=== PATIENT | female | born 1950 | race Caucasian/White ===

== ENCOUNTER → 2020-02-16 07:42 | Outpatient (CLI) | payer MEDICARE, OTHER, SELFPAY ==
--- NOTE | ~2020-02-16 | XR_ITS ---
XR ankle LT min 3V DATE: 02/16/2020 08:03 INDICATION: Left ankle injury, sprain, pain, swelling TECHNIQUE: 4 views COMPARISON: None FINDINGS: There is mild to moderate lateral soft tissue swelling. No recent fracture or dislocation o f the ankle or disruption of the ankle mortise is detected. There are small calcifications adjacent t o the lateral malleolus. These are likely chronic. Slight plantar calcaneal enthesopathy. IMPRESSION: Mild to moderate lateral soft tissue swelling; no apparent recent fracture Reviewed, dictated and finalized at location B. ESSIONAL SERVICES MANAGER IMPRESSION: Mild to moderate lateral soft tissue swelling; no apparent recent f racture
== END ==
PROVIDERS: PCP Family Medicine; Visit Provider Family Medicine
DX: S93.492A Sprain of other ligament of left ankle, initial encounter (principal); M77.52 Other enthesopathy of left foot and ankle
CPT/HCPCS: 73610

== ENCOUNTER → 2020-02-18 14:54 | Outpatient (CLI) | payer MEDICARE, OTHER, SELFPAY ==
--- NOTE | ~2020-02-18 | MR_ITS ---
EXAMINATION: MR ankle LT wo con DATE: 02/18/2020 15:54 INDICATION: Left ankle ligament sprain presenting with lateral left ankle pain. TECHNIQUE: Magnetic resonance imaging (MRI) of the left ankle was performed without intravenous contr ast. Sequences included sagittal, coronal, and axial proton-density weighted fast spin echo without a nd with fat saturation. COMPARISON: None. FINDINGS: Medial ankle ligaments: Deep and superficial deltoid ligaments as well as the spring ligament are normal. Lateral ankle ligaments: The anterior-inferior and posterior inferior tibiofibular ligaments as well as the posterior talofibu lar ligament are normal. There is prominent thickening and increased signal of the anterior talofibul ar ligament the cephalad portion of which appears lax consistent with partial tear. There is linear f luid signal extending across the caudal most tip of the lateral malleolus involving the footplate of the calcaneofibular and caudal aspect of the anterior talofibular and posterior talofibular ligaments . More subtle mild increased signal along the cephalad aspect of the posterior talofibular ligament Tendons: Achilles tendon is normal. The peroneus longus and brevis tendons are normal. The tibialis anterior a nd extensor hallucis longus and extensor digitorum longus tendons are normal. The tibialis posterior, flexor digitorum longus and flexor hallucis longus tendons are normal. Plantar fascia: Plantar aponeurosis is normal. Bones/other: There is marrow edema extending proximal from the tiny avulsion fracture fragment at the tip of the l ateral malleolus. Mild osteoarthritis with minimal subarticular marrow edema at the medial aspect of the navicular cuneiform and at the anterior facet of the subtalar joint. Marrow signal is otherwise n ormal. No other fractures or pathologic marrow replacing process. Fluid: Small tibiotalar joint effusion. Soft tissue edema about the lateral malleolus. IMPRESSION: 1. Lateral ankle injury including combination of a tiny nondisplaced avulsion fracture at the tip of the lateral malleolus including the footplate of the calcaneofibular and portions of the anterior celia ofibular and posterior talofibular ligaments with partial thickness tears of the portion of the tendo ns not attached to the avulsion fracture. Reviewed, dictated and finalized at location H. NT ANALYST IMPRESSION: 1. Lateral ankle injury including combination of a tiny nondisplaced avulsion f racture at the tip of the lateral malleolus including the footplate of the calc aneofibular and portions of the anterior talofibular and posterior talofibular ligaments with partial thickness tears of the portion of the tendons not attach ed to the avulsion fracture.
== END ==
PROVIDERS: Visit Provider Family Medicine
DX: S82.62XA Displaced fracture of lateral malleolus of left fibula, initial encounter for closed fracture (principal); S93.492A Sprain of other ligament of left ankle, initial encounter
CPT/HCPCS: 73721

== ENCOUNTER → 2022-01-10 14:00 | Outpatient (CLI) | payer MEDICARE, OTHER, SELFPAY ==
--- NOTE | ~2022-01-10 | XR_ITS ---
EXAMINATION: XR hand LT min 3V INDICATION: Hand pain after fall TECHNIQUE: Three views of the left hand are obtained. COMPARISON: None available FINDINGS: Bone alignment is normal. There is no fracture. There is advanced osteoarthritis of multipl e interphalangeal joints. There is soft tissue swelling of the second through fourth fingers.. IMPRESSION: 1. Polyarticular osteoarthritis. Reviewed, dictated and finalized at location F.
--- NOTE | ~2022-01-10 | XR_ITS ---
EXAMINATION:XR_CERV2-3V_CR DATE: 01/10/2022 14:36 INDICATION: Neck pain TECHNIQUE: AP, lateral, and odontoid views of the cervical spine are provided. COMPARISON: None FINDINGS: There are 2 mm of anterolisthesis of C4 on C5 and 2 mm of retrolisthesis of C5 on C6. The o dontoid is intact. No fracture is identified. The vertebral body heights are maintained. There is sev ere loss of intervertebral disc space height at C5-6 and C6-7. Small degenerative osteophytes project from the anterior endplates of multiple vertebral bodies. There is moderate multilevel facet and unc overtebral joint osteoarthritis. Prevertebral soft tissues are normal. IMPRESSION: 1. Severe cervical spondylosis without acute findings. Reviewed, dictated and finalized at location F.
== END ==
PROVIDERS: PCP Physician Assistant; Visit Provider Physician Assistant
DX: M47.892 Other spondylosis, cervical region (principal); M19.042 Primary osteoarthritis, left hand
CPT/HCPCS: 72040; 73130

== ENCOUNTER 2022-02-12 08:24 | Outpatient (CLI) | payer MEDICARE, OTHER, SELFPAY ==
--- NOTE | ~2022-02-12 | MR_ITS ---
EXAMINATION: MR brain/brain stem wo/w con DATE: 02/12/2022 09:25 INDICATION: New onset headache. TECHNIQUE: Magnetic resonance imaging (MRI) of the brain and brainstem was performed without and with 12 mL MultiHance intravenous contrast. COMPARISON: None. FINDINGS: There are scattered areas of nonspecific increased T2-weighted signal intensity in the cere bral white matter, which is within normal limits for the patient's age. There is no intracranial hemo rrhage, acute infarction, or abnormal intracranial mass lesion. The ventricles are normal in size. Th ere are bilateral mastoid effusions. There is mild mucosal thickening in the ethmoid sinuses. The orb its are normal. IMPRESSION: 1. Normal aging brain. 2. Bilateral mastoid effusions. Reviewed, dictated and finalized at location A. ATIONS VICE PRESIDENT
--- NOTE | ~2022-02-12 | MR_ITS ---
EXAMINATION: MR cervical spine wo con DATE: 02/12/2022 09:24 INDICATION: Neck pain TECHNIQUE: Magnetic resonance imaging (MRI) of the cervical spine was performed without intravenous c ontrast. Sequences included sagittal T2-weighted FSE, sagittal T2-weighted FS FSE, sagittal T1-weight ed FSE, axial MERGE and axial T2-weighted FSE. COMPARISON: None FINDINGS: There is slight reversal of the normal cervical lordosis. 1-2 mm retrolisthesis C5 on C6. Vertebral body heights are normal. Severe osteoarthritis with subarticular edema-like marrow signal changes at the articulation of the left lateral mass of C1 and C2. Bone marrow signal intensity is otherwise nor mal. Severe disc height loss with degenerative endplate changes at C5-C6 and C6-C7. Mild disc height loss at C2-C3 and C3-C4 as well as at T3-T4. Cord signal intensity is normal. Several mildly prominen t but still normal-sized bilateral cervical lymph nodes. Cervical soft tissues are otherwise unremark able. The following disc levels are specifically discussed: C2-C3: Small central disc protrusion. There is mild bilateral uncovertebral joint osteoarthritis. The re is moderate right and severe left facet joint osteoarthritis. There is mild left and minimal right neural foraminal stenosis. There is no central canal stenosis. C3-C4: Disc is bulging. There is moderate bilateral uncovertebral joint osteoarthritis. There is mild right and severe left facet joint osteoarthritis. There is mild right and moderate left neural alcon inal stenosis. There is mild central canal stenosis with slight flattening of the ventral surface of the cord. C4-C5: Disc is bulging with annular fissure. There is mild left and moderate right uncovertebral join t osteoarthritis. There is mild left and moderate right facet joint osteoarthritis. There is mild lef t and moderate right neural foraminal stenosis. There is mild central canal stenosis. C5-C6: Disc is bulging. There is severe bilateral uncovertebral joint osteoarthritis. There is mild r ight an minimal left facet joint osteoarthritis. There is moderate right and moderate to severe left neural foraminal stenosis. There is mild central canal stenosis with mild flattening of the ventral s urface of the cord. C6-C7: Disc is bulging. There is severe bilateral uncovertebral joint osteoarthritis. There is mild b ilateral facet joint osteoarthritis. There is moderate right and moderate to severe left neural alcon inal stenosis. There is mild central canal stenosis with minimal flattening of the ventral surface of the cord. C7-T1: Annular fissure and small central disc protrusion. There is mild bilateral uncovertebral joint osteoarthritis. There is mild right and moderate left facet joint osteoarthritis. There is mild left neural foraminal stenosis. There is no central canal stenosis. IMPRESSION: 1. Severe cervical spondylosis. Reviewed, dictated and finalized at location B. OVERY MANAGER
== END 2022-02-12 08:25 | disposition home or self-care (01) ==
PROVIDERS: PCP Physician Assistant; Visit Provider Physician Assistant
DX: R51.9 Headache, unspecified (principal); M47.892 Other spondylosis, cervical region
CPT/HCPCS: 70553; 72141; A9577

== ENCOUNTER 2022-05-28 09:00 | Outpatient (RCR) | payer MEDICARE, OTHER, SELFPAY ==
--- NOTE | 2022-03-22 10:33 | PTOPEVAL1 ---
Assessment and note entered by Saskia Cartwright, PT, DPT Evaluation Information Assessment Status Evaluation Diagnosis neck and L shoulder pain Onset 6 months Subjective Information Pt states her pain comes and goes. She states she cannot rotate her neck very far before it sends pain to her neck, head, and L shoulder. She states yesterday her ears started to achy bilaterally. She reports 3-4 headache days a week, this has improved from 6-7 days a week. Reported Pain Level Pain Score 1: Self Report Assessment PT Clinical Summary Rosalina presents to therapy today for her initial evaluation with a diagnosis of cervicalgia and L shoulder pain. Today she demonstrates decreased cervical ROM in all direction with pinching pain on the L side of her neck with active motion. She demonstrates good posture and good shoulder strength and ROM. She demonstrates tenderness to palpation in her L shoulder region as well as with cervical side glides on the L, and decreased joint mobility throughout her cervical spine. Skilled physical therapy services are indicated to address cervical hypomobility, posture, pain, and to return to baseline function. Plan of Care Interventions Electrical Stimulation,Hot Pack/Cold Pack,Manual Therapy,Neuro Re-education,Patient/Caregiver Educati,Therapeutic Activities,Therapeutic Exercise PT Services Indicated Yes Treatment Frequency and 1-2x/wk for 4 wks Duration These treatments will address the objective and functional deficits as defined above. The patient will be advanced safely and appropriately in order for the patient to progress towards his/her prior level of function. Additional exercises will be introduced and as well as a comprehensive home exercise program upon discharge, if needed, ?to ensure carryover of functional gains achieved in the clinic. This treatment plan has been reviewed and agreement upon by the patient.
--- NOTE | 2022-03-29 16:31 | PCPTNOTE ---
Patient no showed this date. Called and left voicemail.
--- NOTE | 2022-04-18 10:44 | PTOPPROG ---
Assessment and note entered by Saskia Cartwright, PT, DPT Evaluation Information Assessment Status Progress Diagnosis neck and L shoulder pain Onset 6 months Subjective Information Pt states she is pretty sore today. She states she is not sure if her movement has improved much. She does states she no longer has a constant headache so that is improvement to her. She reports 3-4 headaches days in the last week compared to 7x/wk at the eval. She states she is pretty comfortable most of the day as long as she is not moving to extremes of cervical ROM. Pt reports 50-60% improvement in overall symptoms. Assessment PT Clinical Summary Rosalina presents to therapy today for her progress report following 7 visits of skilled therapy today to treat her cervical pain. Today she reports decreased intensity and frequency of headaches and shooting pain. She demonstrates minor improvements in her cervical active ROM and improved posture awareness as well as posture in sitting. Continuation of skilled physical therapy services are indicated to further progress strength, to continue to manage pain, and to promote a return to baseline function. Plan of Care Interventions Electrical Stimulation,Hot Pack/Cold Pack,Manual Therapy,Neuro Re-education,Patient/Caregiver Educati,Therapeutic Activities,Therapeutic Exercise PT Services Indicated Yes Treatment Frequency and 1/wk for 6 wks Duration These treatments will address the objective and functional deficits as defined above. The patient will be advanced safely and appropriately in order for the patient to progress towards his/her prior level of function. Additional exercises will be introduced and as well as a comprehensive home exercise program upon discharge, if needed, ?to ensure carryover of functional gains achieved in the clinic. This treatment plan has been reviewed and agreement upon by the patient.
--- NOTE | 2022-04-25 14:14 | PCPTNOTE ---
Patient called & cancelled scheduled appointment this date due to having another appointment this date.
--- NOTE | 2022-05-03 10:11 | PCPTNOTE ---
Patient called to cancel this date but no explanation was given.
--- NOTE | 2022-05-28 09:47 | PTOPDC ---
Assessment and note entered by Saskia Cartwright, PT, DPT Evaluation Information Assessment Status Discharge Diagnosis neck and L shoulder pain Onset 6 months Subjective Information Pt states since her last visit she was told she has a swollen ear drum. She states she was given a steroid and a muscle relaxer that help with her pain but since being off that her pain has returned. Reported Pain Level Pain Score 2: Self Report Assessment PT Clinical Summary Rosalina presents to therapy today for her progress report following 8 visits of skilled therapy to treat her neck and shoulder pain. She demonstrates minimal improvement in her neck ROM and still has pain nearing end ROM. She has improved her shoulder strength this date. She continues to have tightness in her L upper trap region. She would like to be discharged at this time to better focus on her ear and head pain. Plan of Care Interventions Electrical Stimulation,Hot Pack/Cold Pack,Manual Therapy,Neuro Re-education,Patient/Caregiver Educati,Therapeutic Activities,Therapeutic Exercise PT Services Indicated Yes Treatment Frequency and to be discharged Duration
== END 2022-05-28 13:24 | disposition home or self-care (01) ==
LOC: ANHGOSHPT 09:00
PROVIDERS: PCP Family Medicine; Visit Provider Family Medicine
DX: M54.2 Cervicalgia (principal)
CPT/HCPCS: 97012; 97110; 97112; 97140; 97161; 99199

== ENCOUNTER 2022-09-02 14:19 | Outpatient (CLI) | payer OTHER, SELFPAY ==
--- NOTE | ~2022-09-02 | MM_ITS ---
EXAMINATION: MM screening rocío BI w kari HISTORY: Screening TECHNIQUE: Craniocaudal and mediolateral oblique 3-D tomosynthesis images were obtained and synthetic 2-D images were generated. CAD analysis was submitted and interpreted. COMPARISON: Comparison to multiple prior studies sequentially, with oldest reviewed study dated 08/24. BREAST PARENCHYMAL COMPOSITION: Breast composed of scattered areas of fibroglandular density FINDINGS: There is a new circumscribed 4 mm mass lower outer quadrant of the right breast anteriorly. There is a new focal asymmetry of the right breast in the lower inner quadrant. There is a new low-d ensity 4 mm mass in the lower central left breast anteriorly. There are no suspicious calcifications or architectural distortion in either breast. IMPRESSION: 1. New bilateral breast masses and focal right breast asymmetry. 2. Additional mammographic views and possible breast ultrasound are recommended. BI-RADS Category 0: Incomplete: Needs additional imaging evaluation. Reviewed, dictated and finalized at location A. IMPRESSION: 1. New bilateral breast masses and focal right breast asymmetry. 2. Additional mammographic views and possible breast ultrasound are recommended . BI-RADS Category 0: Incomplete: Needs additional imaging evaluation.
--- NOTE | ~2022-09-02 | DEXA_ITS ---
Bone Density Report Name: DARYL PALACIO Age: 71 Sex: Female Ethnicity: White Date of : 1950 Indication: postmenopausal; screening for osteoporosis; height loss; Referring Provider: FREDERIC GABRIEL Study: Bone densitometry was performed. Exam Date: September 02, 2022 Accession number: [id number] Bone Density: Region BMD T-score Z-score Classification AP Spine(L1-L4) 0.860 -1.7 0.5 Osteopenia Femoral Neck (Left) 0.613 -2.1 -0.2 Osteopenia Total Hip (Left) 0.781 -1.3 0.3 Osteopenia Femoral Neck (Right) 0.647 -1.8 0.1 Osteopenia Total Hip (Right) 0.792 -1.2 0.4 Osteopenia Total Hip Mean 0.786 -1.3 0.4 Osteopenia World Health Organization criteria for BMD impression classify patients as: Normal (T-score at or above -1.0), Osteopenia (T-score between -1.0 and -2.5), or Osteoporosis (T-score at or below -2.5). 10-year Fracture Risk(1): Major Osteoporotic Fracture 13% Hip Fracture 2.7% Reported Risk Factors: [place] (), Neck BMD=0.613, BMI=25.9 (1) FRAX(R) Version 3.08. Fracture probability calculated for an untreated patient. Fracture probability may be lower if the patient has received treatment. Clinical Information Provided by Patient: Patient maximum height was 63.5 Menopause Age: 52 No regular weight bearing exercise Drinks caffeinated beverages Onset of menses at age 14 Number of children 3 Impression: The patient has low bone mass, based on the Left Femoral Neck T-score. The patient has an estimated ten-year risk of hip fracture of 2.7% and an estimated ten-year risk of major fracture of 13%, based on the WHO FRAX algorithm. Discussion: BONE DENSITY IS LOW AT ONE OR MORE SKELETAL SITES. This patient's lowest T-score is low at one or more skeletal sites. It meets the World Health Organization's (WHO) criteria for ?low bone mass? (T-score between -1.0 and -2.5). The patient's 10-year risk of fracture as calculated by FRAX is less than the threshold where pharmacological therapy is recommended by the National Osteoporosis Foundation (NOF). However, all treatment decisions require clinical judgment and consideration of individual patient factors, including patient preferences, comorbidities, previous drug use, risk factors not captured in the FRAX model (e.g., frailty, falls, vitamin D deficiency, increased bone turnover, interval significant decline in bone density) and possible under or overestimation of fracture risk by FRAX. The patient should follow a healthful lifestyle (good nutrition with adequate calcium and vitamin D, and appropriate weight-bearing exercise). Follow-Up: Consider repeating this study in 2 to 3 years to reassess this patient's status, or sooner if there is some new clinical indication. Reported by: MO on 09/02/2022 2:46:00 PM.
== END 2022-09-02 14:20 | disposition home or self-care (01) ==
LOC: ANHIMG 14:20
PROVIDERS: PCP Family Medicine; Visit Provider Physician Assistant
DX: Z12.31 Encounter for screening mammogram for malignant neoplasm of breast (principal); Z78.0 Asymptomatic menopausal state; R92.8 Other abnormal and inconclusive findings on diagnostic imaging of breast; M85.88 Other specified disorders of bone density and structure, other site; M85.852 Other specified disorders of bone density and structure, left thigh; M85.851 Other specified disorders of bone density and structure, right thigh
CPT/HCPCS: 77063; 77067; 77080

== ENCOUNTER 2022-09-26 13:46 | Outpatient (CLI) | payer OTHER, SELFPAY ==
--- NOTE | ~2022-09-26 | MMUS_ITS ---
EXAMINATION: MM diagnostic rocío BI w kari, US breast BI limited HISTORY: New bilateral breast masses and focal right breast asymmetry reported on 09/02/2022 screening mammogram TECHNIQUE: Additional 3-D tomosynthesis images of both breasts were performed and synthetic 2-D image s were generated. CAD analysis was submitted and interpreted. High resolution bilateral lower outer q uadrant breast ultrasound breast ultrasound was performed. COMPARISON: 09/02/2022 bilateral screening mammogram FINDINGS: MAMMOGRAPHIC FINDINGS: A focal asymmetry noted in the posterior inner right breast on the screening craniocaudal view of 09/02 disappears on rolled medial and rolled lateral craniocaudal views, consistent with composite sh adowing of overlying structures. A circumscribed approximately 2.3 x 3.9 mm opacity is noted anteriorly in the lower outer left breast near the nipple.. No suspicious mass or architectural distortion, malignant constipation, skin thickening or retraction is noted otherwise in either breast. ULTRASOUND: Real-time imaging of the lower outer quadrant of each breast was performed for new bilateral breast m asses suggested on the 09/02/2022 screening mammogram Right breast 8:00 1 cm from nipple: Antiparallel irregular 4.5 mm deep by 2.5 x 2.8 mm lesion is note d. No posterior shadowing is noted. The antiparallel configuration and irregular margins are of desiree rn. Ultrasound-guided biopsy is recommended. Left breast 6:00 near nipple: Parallel circumscribed sonolucency measures 2.2 x 3.4 x 2.5 mm, without internal vascularity or posterior shadowing, consistent with small cyst. IMPRESSION: 1. Antiparallel irregular 4.5 x 2.5 x 2.8 mm lesion of right breast at 8:00 1 cm from nipple 2. Ultrasound-guided biopsy of right breast 8:00 lesion is recommended BI-RADS category 4, suspicious findings. Dr. Pascual telephoned the report and ultrasound-guided biopsy recommendation for the right breast 8:00 lesion on 09/27/20[address] Frazier Reviewed, dictated and finalized at location A. IMPRESSION: 1. Antiparallel irregular 4.5 x 2.5 x 2.8 mm lesion of right breast at 8:00 1 c m from nipple 2. Ultrasound-guided biopsy of right breast 8:00 lesion is recommended BI-RADS category 4, suspicious findings. Dr. Pascual telephoned the report and ultrasound-guided biopsy recommendation for the right breast 8:00 lesion on 09/27/[address] Frazier
== END 2022-09-26 13:47 | disposition home or self-care (01) ==
PROVIDERS: PCP Family Medicine; Visit Provider Physician Assistant
DX: R92.8 Other abnormal and inconclusive findings on diagnostic imaging of breast (principal)
CPT/HCPCS: 76642; 77062; 77066; G0279

== ENCOUNTER 2022-10-11 12:12 | Outpatient (CLI) | payer OTHER, SELFPAY ==
[2022-10-11 19:34] LABS: Basophils Absolute Auto 0.1 K/mm3 (0.0-0.1); Basophils Percent Auto 1.4 % (0.2-1.2); Eosinophils Absolute Auto 1.8 K/mm3 (0-0.3); Eosinophils Percent Auto 20.9 % (0-4.4); Hematocrit 42.5 % (37.0-47.0); Hemoglobin 13.8 g/dL (12.0-15.0); Immature Granulocyte Absolute 0.03 K/mm3 (0.00-0.031); Immature Granulocyte Percent A 0.3 % (0-0.5); Lymphocytes Absolute Auto 1.97 K/mm3 (0.9-3.2); Lymphocytes Percent Auto 22.5 % (18.3-44.2); Mean Corpuscular HGB Conc 32.5 g/dl (32-36); Mean Corpuscular Hemoglobin 30.7 pg (26-34); Mean Corpuscular Volume 94.4 fl (80-100); Mean Platelet Volume 11.5 fl (7.4-10.4); Monocytes Absolute Auto 0.3 K/mm3 (0.1-0.6); Monocytes Percent Auto 3.8 % (2.6-8.5); Neutrophils Absolute Auto 4.5 K/mm3 (1.3-6.7); Neutrophils Percent Auto 51.1 % (45.5-73.1); Platelet Count Result 185 k/mm3 (150-375); Red Cell Distribution Width 12.9 % (11.5-14.5); White Blood Count 8.8 K/mm3 (4.5-10.0)
[2022-10-11 19:46] LABS: Alanine Aminotransferase 25 U/L (6-35); Albumin Level 4.2 g/dL (3.5-5.1); Alkaline Phosphatase 92 U/L (38-126); Anion Gap -4 mmol/L (8-16); Aspartate Amino Transferase 43 U/L (14-36); Bilirubin,Total 0.5 mg/dL (0.2-1.3); Blood Urea Nitrogen 18 mg/dL (7-17); Calcium 8.8 mg/dL (8.4-10.2); Carbon Dioxide 37 mmol/L (22-30); Chloride 105 mmol/L (98-107); Cholesterol 219 mg/dL (0-200); Estimated Glomerular Filt Rate > 60; Glucose 77 mg/dL (65-110); HDL Direct 59 mg/dL; Potassium 4.5 mmol/L (3.4-5.0); Sodium 138 mmol/L (137-145); Triglycerides 86 mg/dL (<150)
[2022-10-11 20:01] LABS: LDL Cholesterol Direct 118 mg/dL; Vitamin D 25 Hydroxy 34.1 ng/mL
[2022-10-11 20:11] LABS: Hemoglobin A1C 5.8 % (<5.7)
[2022-10-15 06:07] LABS: Hepatitis C RNA, Quant PCR <15 IU/mL
== END 2022-10-11 12:13 | disposition home or self-care (01) ==
LOC: ANHGOSHLAB 12:13
PROVIDERS: PCP Family Medicine; Visit Provider Physician Assistant
DX: R73.03 Prediabetes (principal); M85.80 Other specified disorders of bone density and structure, unspecified site; E78.2 Mixed hyperlipidemia; Z79.899 Other long term (current) drug therapy; Z11.59 Encounter for screening for other viral diseases
CPT/HCPCS: 36415; 80053; 80061; 82306; 83036; 84443; 85025; 87522

== ENCOUNTER 2022-10-29 09:17 | Outpatient (CLI) | payer OTHER, SELFPAY ==
--- NOTE | ~2022-10-29 | MMUS_ITS ---
EXAMINATION: US GUIDED NEEDLE BIOPSY DATE: 10/29/2022 11:10 CDT INDICATION: Right breast 8:00 2.5 x 2.8 x 4.5 mm mass 1 cm from nipple TECHNIQUE AND FINDINGS: The risks and potential benefits of the procedure were discussed with the patient, and written inform ed consent was obtained. Timeout procedure was performed. After sterile preparation of the right [address], 1% lidocaine was utilized for local anesthesia. A 12 G spring-loaded biopsy gun needle was advanced to the edge of the region of interest from a late ral approach utilizing sonographic guidance. A total of three tissue core samples were obtained thro ugh the lesion. An Inrad tissue marker clip was then placed at the biopsy site. Hemostasis was achie leighann. A sterile bandage was applied. The patient tolerated procedure well and there was no evidence of immediate complication. The patien t was given verbal instructions prior to departing from the department. A two view mammogram was perf ormed to document tissue marker clip placement. The tissue samples were submitted to surgical patholo gy for histologic analysis. IMPRESSION: Ultrasound guided biopsy of right 8:00 breast mass with biopsy marker placement. Please refer to path ology report for histologic analysis. Reviewed, dictated and finalized at Location A. Reviewed, dictated and finalized at location A. IMPRESSION: Ultrasound guided biopsy of right 8:00 breast mass with biopsy marker placement . Please refer to pathology report for histologic analysis.
== END 2022-10-29 09:18 | disposition home or self-care (01) ==
PROVIDERS: PCP Family Medicine; Visit Provider Physician Assistant
DX: N63.13 Unspecified lump in the right breast, lower outer quadrant (principal)
CPT/HCPCS: 19083; 88305; 88342; A4648

== ENCOUNTER 2022-11-20 08:19 | Outpatient (CLI) | payer OTHER, SELFPAY ==
[2022-11-20 18:36] LABS: Basophils Absolute Auto 0.1 K/mm3 (0.0-0.1); Basophils Percent Auto 1.2 % (0.2-1.2); Eosinophils Absolute Auto 0.2 K/mm3 (0-0.3); Hematocrit 42.7 % (37.0-47.0); Hemoglobin 13.6 g/dL (12.0-15.0); Immature Granulocyte Absolute 0.01 K/mm3 (0.00-0.031); Immature Granulocyte Percent A 0.2 % (0-0.5); Lymphocytes Percent Auto 34.8 % (18.3-44.2); Mean Corpuscular HGB Conc 31.9 g/dl (32-36); Mean Corpuscular Hemoglobin 30.5 pg (26-34); Mean Corpuscular Volume 95.7 fl (80-100); Mean Platelet Volume 11.2 fl (7.4-10.4); Monocytes Absolute Auto 0.4 K/mm3 (0.1-0.6); Monocytes Percent Auto 6.3 % (2.6-8.5); Neutrophils Absolute Auto 3.1 K/mm3 (1.3-6.7); Neutrophils Percent Auto 54.5 % (45.5-73.1); Platelet Count Result 215 k/mm3 (150-375); Red Blood Count 4.46 M/mm3 (4.2-5.4); Red Cell Distribution Width 12.8 % (11.5-14.5); White Blood Count 5.7 K/mm3 (4.5-10.0)
[2022-11-20 19:08] LABS: Alanine Aminotransferase 22 U/L (6-35); Albumin Level 4.3 g/dL (3.5-5.1); Alkaline Phosphatase 84 U/L (38-126); Anion Gap 6 mmol/L (8-16); Aspartate Amino Transferase 29 U/L (14-36); Bilirubin,Total 0.3 mg/dL (0.2-1.3); Blood Urea Nitrogen 14 mg/dL (7-17); Carbon Dioxide 31 mmol/L (22-30); Chloride 102 mmol/L (98-107); Estimated Glomerular Filt Rate > 60; Glucose 90 mg/dL (65-110); Potassium 4.4 mmol/L (3.4-5.0); Sodium 139 mmol/L (137-145)
== END 2022-11-20 08:20 | disposition home or self-care (01) ==
PROVIDERS: PCP Family Medicine; Visit Provider Physician Assistant
DX: R74.8 Abnormal levels of other serum enzymes (principal)
CPT/HCPCS: 36415; 80053; 85025

== ENCOUNTER 2023-10-15 07:58 | Outpatient (CLI) | payer OTHER, SELFPAY ==
[2023-10-15 13:40] LABS: Alanine Aminotransferase 20 U/L (6-35); Albumin Level 4.3 g/dL (3.5-5.1); Alkaline Phosphatase 73 U/L (38-126); Anion Gap 7 mmol/L (4-12); Aspartate Amino Transferase 50 U/L (14-36); Bilirubin,Total 0.4 mg/dL (0.2-1.3); Blood Urea Nitrogen 23 mg/dL (7-17); Calcium 8.9 mg/dL (8.4-10.2); Carbon Dioxide 29 mmol/L (22-30); Chloride 104 mmol/L (98-107); Cholesterol 245 mg/dL (0-200); Estimated Glomerular Filt Rate > 60; Glucose 83 mg/dL (65-110); HDL Direct 81 mg/dL; Potassium 4.2 mmol/L (3.4-5.0); Sodium 140 mmol/L (137-145); Triglycerides 70 mg/dL (<150)
[2023-10-15 13:45] LABS: Vitamin D 25 Hydroxy 41.8 ng/mL
[2023-10-15 13:52] LABS: LDL Cholesterol Direct 126 mg/dL
[2023-10-15 14:18] LABS: Hemoglobin A1C 5.7 % (<5.7)
== END 2023-10-15 07:59 | disposition home or self-care (01) ==
PROVIDERS: PCP Family Medicine; Visit Provider Family Medicine
DX: R73.03 Prediabetes (principal); Z78.0 Asymptomatic menopausal state; E78.2 Mixed hyperlipidemia; M85.80 Other specified disorders of bone density and structure, unspecified site
CPT/HCPCS: 36415; 80053; 80061; 82306; 83036

== ENCOUNTER 2023-10-20 11:01 | Outpatient (CLI) | payer OTHER, SELFPAY | END 2023-10-20 11:02 | disposition home or self-care (01) | LOC: ANHAUDASC 11:02 | PROVIDERS: PCP Family Medicine; Visit Provider Student in an Organized Health Care Education/Training Program | DX: H90.3 Sensorineural hearing loss, bilateral (principal) | CPT/HCPCS: 92557; 92567 ==

== ENCOUNTER 2024-04-08 11:07 | Outpatient (CLI) | payer OTHER, SELFPAY ==
[2024-04-08 20:38] LABS: Alanine Aminotransferase 24 U/L (6-35); Albumin Level 4.3 g/dL (3.5-5.1); Alkaline Phosphatase 99 U/L (38-126); Anion Gap 8 mmol/L (4-12); Aspartate Amino Transferase 43 U/L (14-36); Bilirubin,Total 0.5 mg/dL (0.2-1.3); Blood Urea Nitrogen 18 mg/dL (7-17); Calcium 9.3 mg/dL (8.4-10.2); Carbon Dioxide 31 mmol/L (22-30); Chloride 103 mmol/L (98-107); Cholesterol 220 mg/dL (0-200); Estimated Glomerular Filt Rate > 60; Glucose 92 mg/dL (65-110); HDL Direct 76 mg/dL; Potassium 4.7 mmol/L (3.4-5.0); Sodium 142 mmol/L (137-145); Triglycerides 102 mg/dL (<150)
[2024-04-08 20:48] LABS: LDL Cholesterol Direct 94 mg/dL
[2024-04-08 21:14] LABS: Vitamin D 25 Hydroxy 41.7 ng/mL
[2024-04-08 22:34] LABS: Hemoglobin A1C 5.7 % (<5.7)
== END 2024-04-08 11:08 | disposition home or self-care (01) ==
LOC: ANHGOSHLAB 11:08
PROVIDERS: PCP Family Medicine; Visit Provider Family Medicine
DX: R73.03 Prediabetes (principal); E78.2 Mixed hyperlipidemia; M85.89 Other specified disorders of bone density and structure, multiple sites; Z78.0 Asymptomatic menopausal state
CPT/HCPCS: 36415; 80053; 80061; 82306; 83036

== ENCOUNTER 2024-04-21 15:53 | Outpatient (CLI) | payer OTHER, SELFPAY ==
[2024-04-21 20:39] LABS: Anion Gap 10 mmol/L (4-12); Blood Urea Nitrogen 16 mg/dL (7-17); Calcium 9.1 mg/dL (8.4-10.2); Carbon Dioxide 27 mmol/L (22-30); Chloride 104 mmol/L (98-107); Estimated Glomerular Filt Rate > 60; Glucose 86 mg/dL (65-110); Potassium 4.4 mmol/L (3.4-5.0); Sodium 141 mmol/L (137-145)
== END 2024-04-21 15:54 | disposition home or self-care (01) ==
LOC: ANHGOSHLAB 15:54
PROVIDERS: PCP Family Medicine; Visit Provider Family Medicine
DX: I10 Essential (primary) hypertension (principal)
CPT/HCPCS: 36415; 80048

== ENCOUNTER 2024-06-30 08:00 | Outpatient (RCR) | payer OTHER, SELFPAY ==
--- NOTE | 2024-04-21 16:05 | OPREHPOC ---
Outpatient Therapy Plan of Care This is a Multidisciplinary Plan of Care that may contain components documented by all disciplines (PT, OT, and ST.) PT Problem 1 PT Problem #1 Knowledge Deficit PT Goal 1 Goal / Goal Update Pt to be IND with issued HEP PT Problem 2 PT Problem #2 Pain PT Goal 1 Goal / Goal Update 1. Pt to report neck pain no greater than 3/10 in the last week 2. Pt to decline shooting pains in the last week 3. pt to report no more than 3 headache days in the last week Target Visit 10 PT Problem 3 PT Problem #3 Impaired Range of Motion PT Goal 1 Goal / Goal Update 1. Pt to improve cervical lateral flexion to 30 deg nicky 2. Pt to improve cervical rotation to 45 deg nicky
--- NOTE | 2024-04-21 16:05 | PTOPEVAL1 ---
Assessment and note entered by Saskia Cartwright, PT, DPT Evaluation Information Assessment Status Evaluation Diagnosis neck pain ICD-10 Condition Codes (PT) Cervicalgia M54.2,Radiculopathy, cervical M54.13 Subjective Information Pt reports an 8 month history of neck pain, reports arthritis. States her exercise and daily mobility has been limited d/t her neck pain. States her pain will radiate to the L side of her head and into her ear. Pt reports headaches daily, ibuprofen and heat helps. Laying down for 30 mins will help to relieve her headache. Reported Pain Level Pain Score 5: Self Report Assessment PT Clinical Summary Pt presents to therapy today for her initial evaluation with a diagnosis of cervicalgia. Today she demonstrates decreased ROM in all directions; active and passively, limited d/t pain. She has decreased passive cervical joint mobility. She has good shoulder ROM and strength. Skilled therapy services are indicated to improve muscle flexibility and joint mobility, to manage pain, and to return to PLOF. Plan of Care Interventions Electrical Stimulation,Gait Training,Hot Pack/Cold Pack,Manual Therapy,Mechanical Traction,Neuro Re- education,Patient/Caregiver Education,Therapeutic Activities,Therapeutic Exercise PT Services Indicated Yes Treatment Frequency and 2x/wk for 10 visits Duration These treatments will address the objective and functional deficits as defined above. The patient will be advanced safely and appropriately in order for the patient to progress towards his/her prior level of function. Additional exercises will be introduced and as well as a comprehensive home exercise program upon discharge, if needed, ?to ensure carryover of functional gains achieved in the clinic. This treatment plan has been reviewed and agreement upon by the patient.
--- NOTE | 2024-06-03 14:19 | OPREHPOC ---
Outpatient Therapy Plan of Care This is a Multidisciplinary Plan of Care that may contain components documented by all disciplines (PT, OT, and ST.) PT Problem 1 PT Problem #1 Knowledge Deficit PT Goal 1 Goal / Goal Update Pt to be IND with issued HEP Progress Met PT Problem 2 PT Problem #2 Pain PT Goal 1 Goal / Goal Update 1. Pt to report neck pain no greater than 3/10 in the last week 2. Pt to decline shooting pains in the last week 3. pt to report no more than 3 headache days in the last week 06/03/24: 1. progressing, 08/07 2. progressing, activity dependent 3. not progressing Target Visit 10 PT Problem 3 PT Problem #3 Impaired Range of Motion PT Goal 1 Goal / Goal Update 1. Pt to improve cervical lateral flexion to 30 deg nicky 2. Pt to improve cervical rotation to 65 deg nicky 06/03/24: 1. progressing 2. progressing
--- NOTE | 2024-06-03 14:19 | PTOPPROGNS ---
Assessment and note entered by Saskia Cartwright, PT, DPT Evaluation Information Assessment Status Progress Diagnosis neck pain ICD-10 Condition Codes (PT) Cervicalgia M54.2,Radiculopathy, cervical M54.13 Subjective Information Pt states she now recalls a stumble in February, that he caught herself with her arms. States she thinks this could be was caused an increase in pain from her baseline. She states she still has pain to where she cannot return to her prior activity level yet. Her pain as improved in the last month. States she is taking less medication and getting less shooting pain. Still continues to have almost daily headaches. Assessment PT Clinical Summary Pt presents to therapy today for her progress report following 4 visits of skilled therapy and a month long participation in her HEP. Today she demonstrates improved cervical ROM in all directions; but still decreased from normal. Her sharp pains have decreased as well. She continues to have headaches almost daily, decreased cervical mobility, and cannot participate in her prior exercise routine d/t pain. Continuation of skilled therapy services are indicated to continue progressing towards goals, to improve flexibility and joint mobility, to manage pain, and to return to PLOF. Plan of Care Interventions Electrical Stimulation,Gait Training,Hot Pack/Cold Pack,Manual Therapy,Mechanical Traction,Neuro Re- education,Patient/Caregiver Education,Therapeutic Activities,Therapeutic Exercise PT Services Indicated Yes Treatment Frequency and continue per POC Duration These treatments will address the objective and functional deficits as defined above. The patient will be advanced safely and appropriately in order for the patient to progress towards his/her prior level of function. Additional exercises will be introduced and as well as a comprehensive home exercise program upon discharge, if needed, ?to ensure carryover of functional gains achieved in the clinic. This treatment plan has been reviewed and agreement upon by the patient.
--- NOTE | 2024-06-30 09:13 | OPREHPOC ---
Outpatient Therapy Plan of Care This is a Multidisciplinary Plan of Care that may contain components documented by all disciplines (PT, OT, and ST.) PT Problem 1 PT Problem #1 Knowledge Deficit PT Goal 1 Goal / Goal Update Pt to be IND with issued HEP Progress Met PT Problem 2 PT Problem #2 Pain PT Goal 1 Goal / Goal Update 1. Pt to report neck pain no greater than 3/10 in the last week 2. Pt to decline shooting pains in the last week 3. pt to report no more than 3 headache days in the last week 06/03/24: 1. progressing, 08/07 2. progressing, activity dependent 3. not progressing 06/30/24: 1. progressing, 08/07 2. progressing 3. not progressing Target Visit 10 PT Problem 3 PT Problem #3 Impaired Range of Motion PT Goal 1 Goal / Goal Update 1. Pt to improve cervical lateral flexion to 30 deg nicky 2. Pt to improve cervical rotation to 65 deg nicky 06/03/24: 1. progressing 2. progressing
--- NOTE | 2024-06-30 09:13 | PTOPDC ---
Assessment and note entered by Saskia Cartwright, PT, DPT Evaluation Information Assessment Status Discharge Diagnosis neck pain ICD-10 Condition Codes (PT) Cervicalgia M54.2,Radiculopathy, cervical M54.13 Subjective Information Pt states she feels like her ROM has improved. She is still getting headaches almost daily, was recently diagnosed with hypertension and wonders if this could be affecting her headaches as well. Reports good compliance with her HEP. Reported Pain Level Pain Score 3: Self Report Assessment PT Clinical Summary Pt presents to therapy today for her progress report following 8 visits of skilled therapy. Today she continues to show improved cervical ROM in all directions; but still decreased from normal . She continues to have headaches almost daily. She is making slow but consistent progress towards her therapy goals. Pt plans to continue her HEP IND and will be discharged at this time.
== END 2024-06-30 09:29 | disposition home or self-care (01) ==
LOC: ANHGOSHPT 08:00
PROVIDERS: PCP Family Medicine; Visit Provider Family Medicine
DX: S16.1XXA Strain of muscle, fascia and tendon at neck level, initial encounter (principal); M62.838 Other muscle spasm
CPT/HCPCS: 97110; 97140; 97161

== ENCOUNTER 2024-08-31 10:19 | Outpatient (CLI) | payer OTHER, SELFPAY ==
--- NOTE | ~2024-08-31 | CT_ITS ---
EXAMINATION: CTA chest PE protocol DATE: 08/31/2024 10:51 CDT INDICATION: Chest pain TECHNIQUE: Computed tomographic angiography (CTA) of the chest was performed with 100 mL Omnipaque-35 0 intravenous contrast. The dose-length product was 167.19 mGy-cm. Maximum intensity projection 3D-re constructions of the aorta and other arteries were constructed by the technologist on a separate work station. COMPARISON: No prior studies for comparison. . FINDINGS: No thoracic lymphadenopathy. No significant pleural or pericardial effusion. Study is techn ically adequate without evidence for pulmonary embolism. Heart size normal. Upper abdomen is unremark able. No endobronchial lesions. Dependent atelectasis. No focal airspace consolidation. No pneumothor ax. No suspicious pulmonary nodules or masses. No focal lytic or blastic lesions. IMPRESSION: 1. No acute cardiopulmonary disease. No evidence for pulmonary embolism. Reviewed, dictated and finalized at location A.
[2024-08-31 10:44] LABS: Estimated Glomerular Filt Rate > 60
--- OUTSIDE RECORDS SUMMARY | 2024-08-31 10:46 | XMS_ITS | Clinical Summary ---
Author Organization [facility] [address] [place] Address [address] [place] [id number] Care Team Providers Care Driver Trainee Name Role Phone Fannie Cornell MD Primary Care Provider + Everton Frazier Unavailable Allergies Active Allergy Reactions Criticality Noted Date Comments Sulfa Swelling Medium 01/21/2023 Medications cyclobenzaprine (FLEXERIL) 10 mg tablet Take 1 tablet (10 mg total) by mouth 2 (two) times a day as needed for muscle spasms 3 Active calcium carbonate-vitam in D3 1,500 mg (600mg elemental) -800 unit per tabletIndicatio ns:Hypocalcemia Prevention,Prev ention of Vitamin D Deficiency Take 1 tablet by mouth every morning Active turmeric root extract 500 mg capsuleIndicati ons:supplement Take 1 capsule by mouth teacher early childhood development before breakfast Active ibuprofen 200 mg tab/cap Take 1 tablet/capsule (200 mg total) by mouth every 6 (six) hours as needed for pain Active Active Problems Problem Noted Date Diagnosed Date Abnormal mammogram 01/20/2023 Surgical History Surgery Date Site/Laterality Comments HERNIA REPAIR been years LEG SURGERY 03/31/1999 - 03/30/2000 Right had a alvin put in BREAST BIOPSY 03/31/2022 - 03/30/2023 Right SECTION x 3 COLONOSCOPY Medical History Medical History Date Comments Headaches, cluster Family History Medical History Relation Name Comments Breast cancer Daughter gene panel neg ative Breast cancer Maternal Grandmother Breast cancer Mother Breast cancer Mother's Sister Breast cancer Sister 1 gene panel neg ative Breast cancer Sister 2 gene panel neg ative Anesthesia problems Neg Hx Malig Hypertension Neg Hx Malig Hyperthermia Neg Hx Pseudochol deficiency Neg Hx Relation Name Status Comments Daughter Alive Father Maternal Grandmother Mother Mother's Sister Sister 1 Sister 2 Alive Social History Tobacco Use Types Packs/Day Years Used Date Smoking Tobacco: Never Passive Smoke Exposure: Never Smokeless Tobacco: Never Tobacco Cessation:Counseling Given: Not Answered AUDIT-C Answer Date Recorded Q1: How often do you have a drink containing alc ohol? 2-4 times a month 02/10/2023 Q2: How many drinks containi ng alcohol do you have on a typical day when you are drinking? 1 or 2 02/10/2023 Q3: How often do you have si x or more drinks on one occasion? Never 02/10/2023 Personal Safety Answer Date Recorded Have you ever been in or are you currently in a harmful physical or emotional relationship or is someone making you feel afraid or unsafe? Denies 02/10/2023 Comments Unknown Sex and Gender Information Value Date Recorded Sex Assigned at Not on file Legal Sex Female 4:03 AM SPEECH THERAPY DIRECTOR Gender Identity Not on file Sexual Orientation Not on file Obstetrics History Last Filed Vital Signs Vital Sign Reading Time Taken Comments Blood Pressure 162/69 02/10/2023 5:00 PM SPEECH THERAPY DIRECTOR Pulse 61 02/10/2023 5:00 PM SPEECH THERAPY DIRECTOR Temperature 36.1 C (97 F) 02/10/2023 4:35 PM SPEECH THERAPY DIRECTOR Respiratory Rate 15 02/10/2023 5:00 PM SPEECH THERAPY DIRECTOR Oxygen Saturation 100% 02/10/2023 5:00 PM SPEECH THERAPY DIRECTOR Inhaled Oxygen Concentration - - Weight 61.7 kg (136 lb) 02/10/2023 1:19 PM SPEECH THERAPY DIRECTOR Height 157.5 cm (5' 2) 02/10/2023 1:19 PM SPEECH THERAPY DIRECTOR Body Mass Index 24.87 02/10/2023 1:19 PM SPEECH THERAPY DIRECTOR Plan of Treatment Health Maintenance Due Date Last Done Comments Colon Cancer Screening-Colonoscopy 1950 Depression Screening 1950 Hepatitis C Screening 1950 Osteoporosis Screening-Bone Density Scan 1950 DTaP/Tdap/Td Vaccine (1 - Tdap) 1961 Hepatitis B Screening 1968 Well Visit 65+ 10/25/2015 Pneumococcal vaccine 65+ (2 of 2 - PPSV23) 04/29/2019 04/29/2018 Covid-19 Vaccine (5 - 2024-2 5 season) 2023 07/10/2021, 12/29/2020, 06/03/2020, Additional history exists Fall Risk Assessment 02/11/2024 02/10/2023 Influenza Vaccine (Season Ended) 2024 12/29/2020, 02/05/2019, 12/22/2017 Breast Cancer Screening-Mammogram 04/02/2025 025 Zoster Vaccine Completed 04/22/2018, 01/01/2018 Medical Devices Implanted Type Area Centrifugal Machine Tender Device Identifier Shelf Expiration Date Model / Serial / Lot Prizm [employer] Marker Tissue Needle Delivery Spiral Capped Seed Radiopaque Or Director Stainless Steel Low Nickel Sentimag [id number] - [id number] Implanted:Qty: 1 on 02/03/2023 by Vonnie Gonzalez MD at [facility] Right: Breast [employer] [id number] 08/28/2026 [id number] 1 / / [id number] [employer] Marker Tissue Needle Delivery Spiral Capped Seed Radiopaque Detention Stainless Steel Low Nickel Sentimag [id number] - [id number] Implanted:Qty: 1 on 02/03/2023 by Emeka Vicente MD at [facility] Right: Breast [employer] [id number] 07/28/2026 [id number] 1 / / [id number] Procedures Procedure Name Priority Date/Time Associated Diagnosis Comments SCREENING MAMMOGRAM BILATERAL W DOMO Schedule Routine, Read Routine (OP Routine) 04/02/2024 8:08 AM SPEECH THERAPY DIRECTOR Screening mammogram, encounter for from Last 3 Months or Most Recently Relevant to Health Maintenance Results * Screening Mammogram Bilateral W Domo (04/02/2024 8:08 AM SPEECH THERAPY DIRECTOR) Anatomical Region Laterality Modality Breast Bilateral Mammography Narrative 04/02/2024 2:47 PM SPEECH THERAPY DIRECTOR Mammogram Technique: Bilateral Digital Breast Tomosynthesis, Bilateral C-view 2D Screening mammogram. Views obtained: bilateral craniocaudal and bilateral mediolateral oblique. Computer Aided Detection was performed. Mammogram Findings: The present examination has been compared to prior imaging studies performed at [facility] on 08/30/2022, 09/26/2022 and 10/29/2022. There are scattered areas of fibroglandular density. There is no suspicious abnormality in either breast. Impression: There is no mammographic evidence of malignancy. Annual screening mammography is recommended. OVERALL FINAL ASSESSMENT: BI-RADS CATEGORY 1: Negative. Procedure Note Lydia Carrillo MD - 04/02/2024 Mammogram Technique: Bilateral Digital Breast Tomosynthesis, Bilateral C-view 2D Screening mammogram. Views obtained: bilateral craniocaudal and bilateral mediolateral oblique. Computer Aided Detection was performed. Mammogram Findings: The present examination has been compared to prior imaging studies performed at [facility] on 08/30/2022, 09/26/2022 and 10/29/2022. There are scattered areas of fibroglandular density. There is no suspicious abnormality in either breast. Impression: There is no mammographic evidence of malignancy. Annual screening mammography is recommended. OVERALL FINAL ASSESSMENT: BI-RADS CATEGORY 1: Negative. us Self Screening Mammogram IMG MAMMO PROCEDURES Fi nal Result from Last 3 Months or Most Recently Relevant to Health Maintenance Insurance MEDICARE [facility] [place] [address] [employer] PPO [employer] PPO Care Teams Driver Trainee Relationship Specialty Start Date End Date Fannie Cornell MD PCP - General Family Medicine 12/14/21 Everton Frazier PA [address] [place] [address] Physician Construction Site Manager Physician Construction Site Manager 11/06/22
--- OUTSIDE RECORDS SUMMARY | 2024-08-31 10:46 | XMS_ITS | Referral Summary ---
Author Organization [facility] [place] [address] Address [address] [place] [id number] Care Team Providers Care Machine Set Up Operator Name Role Phone Fannie Cornell MD Primary Care Provider + Everton Frazier Unavailable [phone] Allergies Active Allergy Reactions Criticality Noted Date [...] capsuleIndicati ons:supplement Take 1 capsule by mouth carrot harvester before breakfast Active ibuprofen 200 mg tab/cap Take 1 tablet/capsule (200 mg total) by mouth every 6 (six) hours as needed for pain Active Active Problems Problem Noted Date Diagnosed Date Abnormal mammogram 01/20/2023 Social History Tobacco Use Types Packs/Day Years [...] on file Legal Sex Female 4:03 AM ELECTROPLATING WORKER Gender Identity Not on file Sexual Orientation Not on file Last Filed Vital Signs Vital Sign Reading Time Taken Comments Blood Pressure 162/69 02/10/2023 5:00 PM ELECTROPLATING WORKER Pulse 61 02/10/2023 5:00 PM ELECTROPLATING WORKER Temperature 36.1 C (97 F) 02/10/2023 4:35 PM ELECTROPLATING WORKER Respiratory Rate 15 02/10/2023 5:00 PM ELECTROPLATING WORKER Oxygen Saturation 100% 02/10/2023 5:00 PM ELECTROPLATING WORKER Inhaled Oxygen Concentration - - Weight 61.7 kg (136 lb) 02/10/2023 1:19 PM ELECTROPLATING WORKER Height 157.5 cm (5' 2) 02/10/2023 1:19 PM ELECTROPLATING WORKER Body Mass Index 24.87 02/10/2023 1:19 PM ELECTROPLATING WORKER Plan of Treatment Not on file Medical Devices Implanted Type Area Lead Mobile Developer Device Identifier Shelf Expiration Date Model / Serial / Lot [employer] Marker Tissue Needle Delivery Spiral Capped Seed Radiopaque Nursing Home Stainless Steel Low Nickel Sentimag [id number] - [id number] Implanted:Qty: 1 on 02/03/2023 by Vonnie Gonzalez MD at [facility] Right: Breast [employer] [id number] 08/28/2026 [id number] [employer] Marker Tissue Needle Delivery Spiral Capped Seed Radiopaque Senior Support Engineer Stainless Steel Low Nickel [employer]imag [id number] - [id number] Implanted:Qty: 1 on 02/03/2023 by Emeka Vicente MD at [facility] Right: Breast [employer] [id number] 07/28/2026 [id number] / [id number] Procedures Procedure Name Priority Date/Time Associated Diagnosis Comments SCREENING MAMMOGRAM BILATERAL W DOMO Schedule Routine, Read Routine (OP Routine) 04/02/2024 8:08 AM ELECTROPLATING WORKER Screening mammogram, encounter for from Last 3 Months or Most Recently Relevant to Health Maintenance Results * Screening Mammogram Bilateral W Domo (04/02/2024 8:08 AM ELECTROPLATING WORKER) Anatomical Region Laterality Modality Breast Bilateral Mammography Narrative 04/02/2024 2:47 PM ELECTROPLATING WORKER Mammogram Technique: Bilateral Digital Breast Tomosynthesis, Bilateral C-view 2D Screening mammogram. Views obtained: bilateral craniocaudal and bilateral mediolateral oblique. Computer Aided Detection was performed. Mammogram Findings: The present examination has been compared to prior imaging studies performed at [facility] on 08/30/2022, 09/26/2022 and 10/29/2022. There are [...] compared to prior imaging studies performed at [facility] on 08/30/2022, 09/26/2022 and 10/29/2022. There are scattered areas of fibroglandular density. There is no suspicious abnormality in either breast. Impression: There is no mammographic evidence of malignancy. Annual screening mammography is recommended. OVERALL FINAL ASSESSMENT: BI-RADS CATEGORY 1: Negative. us Self Screening Mammogram IMG MAMMO PROCEDURES Fi nal Result from Last 3 Months or Most Recently Relevant to Health Maintenance Insurance MEDICARE [facility] ADVANTAGE CHOICE PPO [employer] CHO[employer] [place] [id number] Care Teams Machine Set Up Operator Relationship Specialty Start Date End Date Fannie Cornell MD PCP - General Family Medicine 12/14/21 Everton Frazier PA [address] [address] Physician Supervisor Dyer Physician Supervisor Dyer 11/06/22
== END 2024-08-31 10:20 | disposition home or self-care (01) ==
PROVIDERS: PCP Family Medicine; Visit Provider Family Medicine
DX: R07.9 Chest pain, unspecified (principal); R55 Syncope and collapse
CPT/HCPCS: 71275; Q9967

== ENCOUNTER 2024-10-05 08:46 | Outpatient (CLI) | payer OTHER, SELFPAY ==
--- NOTE | 2024-10-05 08:52 | EST_ITS ---
Patient Info Name: Rosalina Handy Age: 73 years : 1950 Gender: Female Ht: 63 in Wt: 140 lbs BSA: 1.69 m2 BP: 123 / 64 mmHg Technical Quality: Good Exam Date: 10/05/2024 9:31 AM Patient Status: O Admit Date: 10/05/2024 Exam Type: CA stress echo Mortgage Underwriter: Imelda Mancuso Attending Provider: Fannie Cornell MD Exercise Technologist: Yeni Roman Exercise Physician: Mahamed Mack DO Summary 1. 1. Negative Mitch exercise stress test for ischemic ST changes by ECG criteria. 2. 2. Good functional capacity, achieving 10 METs of workload. 3. 3. Appropriate HR response to exercise. 4. 4. Appropriate HR recovery at 1 minute post exercise. 5. 5. Negative stress echocardiogram for ischemia by wall motion analysis. 6. 6. Patient informed of the above results. Stress Echo Findings Left Ventricle Appropriate increase in LV endocardial thickening with systole. Appropriate augmentation of contractility with systole. No wall motion abnormality. Left Ventricle Normal LV systolic function, no wall motion abnormality. Protocol: Mitch Stress ECG Details Stage: REST Duration (min): 6 min : 59 sec Speed (mph): 0.0 Grade (%): 0 HR (bpm): 71 SBP (mmHg): --- DBP (mmHg): --- METS: --- Stage: REST Duration (min): 7 min : 30 sec Speed (mph): 0.0 Grade (%): 0 HR (bpm): 67 SBP (mmHg): --- DBP (mmHg): --- METS: --- Stage: STAGE 1 Duration (min): 1 min : 0 sec Speed (mph): 1.7 Grade (%): 10 HR (bpm): 85 SBP (mmHg): --- DBP (mmHg): --- METS: --- Stage: STAGE 1 Duration (min): 2 min : 0 sec Speed (mph): 1.7 Grade (%): 10 HR (bpm): 104 SBP (mmHg): --- DBP (mmHg): --- METS: --- Stage: STAGE 1 Duration (min): 3 min : 0 sec Speed (mph): 1.7 Grade (%): 10 HR (bpm): 107 SBP (mmHg): 160 DBP (mmHg): 66 METS: --- Stage: STAGE 2 Duration (min): 1 min : 0 sec Speed (mph): 2.5 Grade (%): 12 HR (bpm): 107 SBP (mmHg): 160 DBP (mmHg): 66 METS: --- Stage: STAGE 2 Duration (min): 2 min : 0 sec Speed (mph): 2.5 Grade (%): 12 HR (bpm): 110 SBP (mmHg): 122 DBP (mmHg): 67 METS: --- Stage: STAGE 2 Duration (min): 3 min : 0 sec Speed (mph): 2.5 Grade (%): 12 HR (bpm): 106 SBP (mmHg): 122 DBP (mmHg): 67 METS: --- Stage: STAGE 3 Duration (min): 1 min : 0 sec Speed (mph): 3.4 Grade (%): 14 HR (bpm): 113 SBP (mmHg): 122 DBP (mmHg): 67 METS: --- Stage: STAGE 3 Duration (min): 2 min : 0 sec Speed (mph): 3.4 Grade (%): 14 HR (bpm): 117 SBP (mmHg): 122 DBP (mmHg): 67 METS: --- Stage: STAGE 3 Duration (min): 3 min : 0 sec Speed (mph): 3.4 Grade (%): 14 HR (bpm): 123 SBP (mmHg): 122 DBP (mmHg): 67 METS: --- Stage: STAGE 4 Duration (min): 0 min : 9 sec Speed (mph): 0.0 Grade (%): 0 HR (bpm): 123 SBP (mmHg): 122 DBP (mmHg): 67 METS: --- Stage: RECOVERY Duration (min): 0 min : 51 sec Speed (mph): 0.0 Grade (%): 0 HR (bpm): 103 SBP (mmHg): 122 DBP (mmHg): 67 METS: --- Stage: RECOVERY Duration (min): 1 min : 51 sec Speed (mph): 0.0 Grade (%): 0 HR (bpm): 88 SBP (mmHg): 122 DBP (mmHg): 67 METS: --- Stage: RECOVERY Duration (min): 2 min : 51 sec Speed (mph): 0.0 Grade (%): 0 HR (bpm): 85 SBP (mmHg): 155 DBP (mmHg): 81 METS: --- Stage: RECOVERY Duration (min): 3 min : 13 sec Speed (mph): 0.0 Grade (%): 0 HR (bpm): 82 SBP (mmHg): 155 DBP (mmHg): 81 METS: --- Rest HR: 67 bpm Peak HR: 123 bpm Rest Sys BP: 120 mmHg Peak Sys BP: 160 mmHg Max Pred HR: 147 bpm % Max Pred HR: 84 % Target HR: 125 bpm Max RPP: 19,680 bpm*mmHg Campoverde Score: 1 Termination Reason: Reached target heart rate or workload Cardiac Symptoms: Shortness of breath Max ST Seg Deviation: -2 mm Total Time: 9 min : 9 sec Rest Urbano BP: 70 mmHg Peak Urbano BP: 66 mmHg Angina Score: None Total METS: 10.3 Resting ECG Sinus rhythm. Stress ECG No ST changes. Arrhythmias None. Report Signatures Stress ECG Echo
--- OUTSIDE RECORDS SUMMARY | 2024-10-05 08:53 | XMS_ITS | Clinical Summary ---
Author Organization [facility] [place] [address] [place] Address [address] [place] [id number] Care Team Providers Care Chainstitch Pants Outseamer Name Role Phone Fannie Cornell MD Primary Care Provider + Everton Frazier Unavailable [phone] Allergies Active Allergy Reactions Criticality Noted Date [...] capsuleIndicati ons:supplement Take 1 capsule by mouth speech therapist early intervention before breakfast Active ibuprofen 200 mg tab/cap [...] on file Legal Sex Female 4:03 AM ASSEMBLY ASSOCIATE Gender Identity Not on file Sexual Orientation Not on file Obstetrics History Last Filed Vital Signs Vital Sign Reading Time Taken Comments Blood Pressure 162/69 02/10/2023 5:00 PM ASSEMBLY ASSOCIATE Pulse 61 02/10/2023 5:00 PM ASSEMBLY ASSOCIATE Temperature 36.1 C (97 F) 02/10/2023 4:35 PM ASSEMBLY ASSOCIATE Respiratory Rate 15 02/10/2023 5:00 PM ASSEMBLY ASSOCIATE Oxygen Saturation 100% 02/10/2023 5:00 PM ASSEMBLY ASSOCIATE Inhaled Oxygen Concentration - - Weight 61.7 kg (136 lb) 02/10/2023 1:19 PM ASSEMBLY ASSOCIATE Height 157.5 cm (5' 2) 02/10/2023 1:19 PM ASSEMBLY ASSOCIATE Body Mass Index 24.87 02/10/2023 1:19 PM ASSEMBLY ASSOCIATE Plan of Treatment Health Maintenance Due Date [...] 04/22/2018, 01/01/2018 Medical Devices Implanted Type Area Stainless Steel Finisher Device Identifier Shelf Expiration Date Model / Serial / Lot [employer] Marker Tissue Needle Delivery Spiral Capped Seed Radiopaque Machine Operator Hop Worker Stainless Steel Low Nickel [employer] [id number] - [id number] Implanted:Qty: 1 on 02/03/2023 by Vonnie Gonzalez MD at [facility] Right: Breast [employer] [id number] 08/28/2026 [id number] / / [id number] [employer] Marker Tissue Needle Delivery Spiral Capped Seed Radiopaque Long-Term Stainless Steel Low [employer]el [employer] [id number] - [id number] Implanted:Qty: 1 on 02/03/2023 by Emeka Vicente MD at [facility] Right: Breast [employer] [id number] 07/28/2026 [id number] / / [id number] Procedures Procedure Name Priority Date/Time Associated Diagnosis Comments SCREENING MAMMOGRAM BILATERAL W DOMO Schedule Routine, Read Routine (OP Routine) 04/02/2024 8:08 AM ASSEMBLY ASSOCIATE Screening mammogram, encounter for from Last 3 Months or Most Recently Relevant to Health Maintenance Results * Screening Mammogram Bilateral W Domo (04/02/2024 8:08 AM ASSEMBLY ASSOCIATE) Anatomical Region Laterality Modality Breast Bilateral Mammography Narrative 04/02/2024 2:47 PM ASSEMBLY ASSOCIATE Mammogram Technique: Bilateral Digital Breast Tomosynthesis, Bilateral C-view 2D Screening mammogram. Views obtained: bilateral craniocaudal and bilateral mediolateral oblique. Computer Aided Detection was performed. Mammogram Findings: The present examination has been compared to prior imaging studies performed at [facility] on 08/30/2022, 09/26/2022 and 10/29/2022. There are [...] to prior imaging studies performed at [facility] on 08/30/2022, 09/26/2022 and 10/29/2022. There are scattered areas of fibroglandular density. There is no suspicious abnormality in either breast. Impression: There is no mammographic evidence of malignancy. Annual screening mammography is recommended. OVERALL FINAL ASSESSMENT: BI-RADS CATEGORY 1: Negative. us Self Screening Mammogram IMG MAMMO PROCEDURES Fi nal Result from Last 3 Months or Most Recently Relevant to Health Maintenance Insurance MEDICARE [facility] [place] [address] [employer] PPO [employer] PPO Care Teams Chainstitch Pants Outseamer Relationship Specialty Start Date End Date Fannie Cornell MD PCP - General Family Medicine 12/14/21 Everton Frazier PA [address] [place] [address] Physician Graduate Intern Physician Graduate Intern 11/06/22
--- OUTSIDE RECORDS SUMMARY | 2024-10-05 08:53 | XMS_ITS | Referral Summary ---
Author Organization [facility] [address] Address [address] [place] [id number] Care Team Providers Care Pebble Mill Operator Name Role Phone Fannie Cornell MD Primary Care Provider + Everton Frazier Unavailable [phone] Allergies Active Allergy Reactions Criticality Noted Date [...] capsuleIndicati ons:supplement Take 1 capsule by mouth office messenger helper before breakfast Active ibuprofen 200 mg tab/cap [...] on file Legal Sex Female 4:03 AM CLINICAL ACCOUNT SPECIALIST Gender Identity Not on file Sexual Orientation Not on file Last Filed Vital Signs Vital Sign Reading Time Taken Comments Blood Pressure 162/69 02/10/2023 5:00 PM CLINICAL ACCOUNT SPECIALIST Pulse 61 02/10/2023 5:00 PM CLINICAL ACCOUNT SPECIALIST Temperature 36.1 C (97 F) 02/10/2023 4:35 PM CLINICAL ACCOUNT SPECIALIST Respiratory Rate 15 02/10/2023 5:00 PM CLINICAL ACCOUNT SPECIALIST Oxygen Saturation 100% 02/10/2023 5:00 PM CLINICAL ACCOUNT SPECIALIST Inhaled Oxygen Concentration - - Weight 61.7 kg (136 lb) 02/10/2023 1:19 PM CLINICAL ACCOUNT SPECIALIST Height 157.5 cm (5' 2) 02/10/2023 1:19 PM CLINICAL ACCOUNT SPECIALIST Body Mass Index 24.87 02/10/2023 1:19 PM CLINICAL ACCOUNT SPECIALIST Plan of Treatment Not on file Medical Devices Implanted Type Area Industrial Sales Engineer Device Identifier Shelf Expiration Date Model / Serial / Lot [id number] Marker Tissue Needle Delivery Spiral Capped Seed Radiopaque Chcf Stainless Steel Low [employer]el [employer] [id number] Implanted:Qty: 1 on 02/03/2023 by Vonnie Gonzalez MD at [facility] Right: Breast [employer] [id number] 08/28/2026 [id number] [employer] Marker Tissue Needle Delivery Spiral Capped Seed Radiopaque Motor Inspection Mechanic Stainless Steel Low [employer]el [employer] [id number] - [id number] Implanted:Qty: 1 on 02/03/2023 by Emeka Vicente MD at [facility] Right: Breast [employer] [id number] 07/28/2026 [id number] / [id number] Procedures Procedure Name Priority Date/Time Associated Diagnosis Comments SCREENING MAMMOGRAM BILATERAL W DOMO Schedule Routine, Read Routine (OP Routine) 04/02/2024 8:08 AM CLINICAL ACCOUNT SPECIALIST Screening mammogram, encounter for from Last 3 Months or Most Recently Relevant to Health Maintenance Results * Screening Mammogram Bilateral W Domo (04/02/2024 8:08 AM CLINICAL ACCOUNT SPECIALIST) Anatomical Region Laterality Modality Breast Bilateral Mammography Narrative 04/02/2024 2:47 PM CLINICAL ACCOUNT SPECIALIST Mammogram Technique: Bilateral Digital Breast Tomosynthesis, Bilateral C-view 2D Screening mammogram. Views obtained: bilateral craniocaudal and bilateral mediolateral oblique. Computer Aided Detection was performed. Mammogram Findings: The present examination has been compared to prior imaging studies performed at [facility] [place] on 08/30/2022, 09/26/2022 and 10/29/2022. There are [...] compared to prior imaging studies performed at [facility] [place]Note 2] on 08/30/2022, 09/26/2022 and 10/29/2022. There are scattered areas of fibroglandular density. There is no suspicious abnormality in either breast. Impression: There is no mammographic evidence of malignancy. Annual screening mammography is recommended. OVERALL FINAL ASSESSMENT: BI-RADS CATEGORY 1: Negative. us Self Screening Mammogram IMG MAMMO PROCEDURES Fi nal Result from Last 3 Months or Most Recently Relevant to Health Maintenance Insurance MEDICARE [facility] ADVANTAGE CHOICE PPO [employer] [place] [id number] Care Teams Pebble Mill Operator Relationship Specialty Start Date End Date Fannie Cornell MD PCP - General Family Medicine 12/14/21 Everton Frazier PA [address] [place] [address] Physician Abrasive Sawyer Physician Abrasive Sawyer 11/06/22
== END 2024-10-05 08:47 | disposition home or self-care (01) ==
PROVIDERS: PCP Family Medicine; Visit Provider Family Medicine
DX: R07.9 Chest pain, unspecified (principal); R55 Syncope and collapse
CPT/HCPCS: 93351